=== PATIENT | male | born 1970 | race Two or more races ===

== ENCOUNTER 2022-04-30 05:46 | Emergency (ER) | payer BC, OTHER ==
[~2022-04-30] VITALS: Ht 167.6 cm; Wt 88.0 kg
--- NOTE | 2022-04-30 05:50 | NUR ---
[id number] FROM HOME C/O HIGH BS, PER EMS PT DOES NOT TAKEN MEDS AT HOME, ALERT, ORIENTED, RESPIRATORY EVEN AND UNLABORED, NO SOB NOTED. NOT IN DISTRESS. AWAITING MD TO BE SEEN.
--- NOTE | 2022-04-30 05:51 | NUR ---
UPON ADMISSION, PATIENT NOTED WITH LAC # 18 IV LINE, RUNNING WITH NORMAL SALINE, PATIENT CONNCTED TO MONITOR.
--- NOTE | 2022-04-30 06:51 | NUR ---
EKG AT BEDSIDE
[2022-04-30] MEDS ORDERED: IV NS 0.9% 1,000 ML IV ONE (07:00)
--- NOTE | 2022-04-30 07:00 | NUR ---
DEMOLITION WORKER AT BEDSIDE
--- NOTE | 2022-04-30 07:04 | NUR ---
XRAY AT BEDSIDE
[2022-04-30 07:28] LABS: BASOPHILS % (AUTO) 0.5 % (0.0-2.0); EOSINOPHILS % (AUTO) 1.5 % (0.0-6.0); HEMATOCRIT 44 % (39-51); LYMPHOCYTES # (AUTO) 1.7 K/uL (0.8-4.8); LYMPHOCYTES % (AUTO) 33.7 % (20.0-44.0); MEAN CORPUSCULAR HGB CONC 34 g/dl (31.0-36.0); MEAN CORPUSCULAR VOLUME 87 fL (80-96); MONOCYTES # (AUTO) 0.7 K/uL (0.1-1.30); MONOCYTES % (AUTO) 13.2 % (2.0-12.0); NEUTROPHILS # (AUTO) 2.5 K/uL (1.8-8.9); NEUTROPHILS % (AUTO) 51.1 % (43.0-81.0); PLATELET COUNT (AUTO) 257 K/uL (150-450); RED BLOOD CELL COUNT(AUTO) 4.99 MIL/uL (4.5-6.0)
--- NOTE | 2022-04-30 07:29 | NUR ---
URINE COLLECTED AND SENT TO LAB.
[2022-04-30 07:46] LABS: CALCIUM, SERUM 8.7 mg/dL (8.5-10.1); CREATININE 0.8 mg/dL (0.6-1.3); POTASSIUM 3.1 mmol/L (3.5-5.1)
[2022-04-30 07:56] LABS: ALBUMIN 3.4 g/dL (3.4-5.0); BILIRUBIN,TOTAL 0.3 mg/dL (0.2-1.0); TOTAL PROTEIN, SERUM 6.6 g/dL (6.4-8.2)
[2022-04-30 08:31] LABS: BILIRUBIN,URINE NEGATIVE (NEGATIVE); COLOR,URINE YELLOW (YELLOW); LEUKOCYTE ESTERASE ,URINE NEGATIVE (NEGATIVE); NITRITE, URINE NEGATIVE (NEGATIVE); PH,URINE 5.5 (5.0-8.0); PROTEIN,URINE NEGATIVE (NEGATIVE); UGLUCOSE >=1000 mg/dL (NEGATIVE); UROBILINOGEN,URINE 0.2 EU/dL (0.2)
[2022-04-30 08:32] LABS: BACTERIA,URINE None seen /HPF (None Seen); RBC,URINE 0-2 /HPF (0-2); SQUAMOUS EPITHELIAL CELL,UR Few /HPF (None Seen)
[2022-04-30] MEDS ORDERED: POTASSIUM CHLORIDE 20 MEQ TAB.PRT.SR PO ONE ×2 (08:55→09:00)
--- NOTE | 2022-04-30 09:39 | NUR ---
IV removed. Catheter intact and site benign. Pressure and 4x4 applied to site. No bleeding noted. Patient discharged to home in stable condition. Written and verbal after care instructions given. Patient verbalizes understanding of instruction.
[2022-04-30 09:54] VITALS: BP 120/80
== END 2022-04-30 09:39 | disposition home or self-care (01) ==
LOC: ER 05:49
DX: U07.1 COVID-19 (principal); R53.1 Weakness; I10 Essential (primary) hypertension; E11.9 Type 2 diabetes mellitus without complications
CPT/HCPCS: 99285; 96360; 71045; 93005; 85025; 81001; 36415; 80053; 82962; J7030